=== PATIENT | male | born 1980 | race Caucasian/White ===

== ENCOUNTER 2021-02-23 05:51 | Emergency (ER) | payer SELFPAY ==
[~2021-02-23] VITALS: Ht 175.3 cm; Wt 124.7 kg
[2021-02-23] MEDS ORDERED: LACTULOSE20 GM/30 M PO (06:37)
== END 2021-02-23 06:47 | disposition home or self-care (01) ==
LOC: ER 06:00
DX: K59.00 Constipation, unspecified (principal); R50.9 Fever, unspecified; F41.9 Anxiety disorder, unspecified; F17.210 Nicotine dependence, cigarettes, uncomplicated
CPT/HCPCS: 99282